=== PATIENT | male | born 1980 | race Caucasian/White ===

== ENCOUNTER → 2017-11-11 07:57 | Outpatient (CLI) | payer OTHER, SELFPAY | PROVIDERS: Family Provider Family Medicine; PCP Family Medicine; Visit Provider Preventive Medicine Occupational Medicine | DX: R10.13 Epigastric pain (principal) | CPT/HCPCS: 76705 ==

== ENCOUNTER 2019-10-04 13:11 | Emergency (ER) | payer OTHER, SELFPAY ==
[2019-10-04 13:13] VITALS: BP 150/83; PULSE 98; RESP 14; TEMP 36.7; O2SAT 99; BMI 27.1
--- NOTE | 2019-10-04 13:36 | RAD_ITS ---
STUDY: X-RAY - RIGHT FOOT CLINICAL: Male, 39 years old. PAIN S/P INJURY LAS NIGHT -- PAIN AND SWELLING TOP OF FOOT TECHNIQUE: 3 view(s) of the foot. COMPARISON: None. FINDINGS: Normal talus, calcaneus, and tarsal bones. Normal visualized subtalar, talonavicular, calcaneocuboid, tarsal and tarsometatarsal articulations. Nondisplaced fractures at the base of the second third and fourth metatarsals. Normal metatarsophalangeal joint of the great toe. Normal tibial and fibular sesamoid bones. Normal interphalangeal joint of the great toe. Normal phalanges of the great toe. Normal second through fifth metatarsophalangeal joints. Normal interphalangeal joints and phalanges of the lesser toes. The soft tissue structures are unremarkable. RAD/Foot min 3 Views IMPRESSION: Multiple metatarsal fractures and possible unstable Lisfranc injury Electronically Signed: Jorden Arguelles MD at 14:14 EDT , Service support ,
--- NOTE | 2019-10-04 13:38 | ED.VISSUMM ---
- ER Visit Summary Date of Service: 10/04/19 Chief Complaint: Right foot pain and swelling after injury History of Present Illness: The patient is a 39 M has medical history of reflux. Yesterday was swimming in a friend's pool. He jumped out of a pool was running along the pool deck and accidentally kicked the base of a pool basketball hoop. Since then has had pain and swelling to the right foot. No prior history of surgery or fracture. Said it caused him a lot of pain with weightbearing. Denies any ankle or other injuries. Physical Examination: No acute distress vital signs stable afebrile. HEENT exam unremarkable. Lungs clear to auscultation. Heart regular rhythm no murmur. Chest wall nontender. Abdomen soft nontender. Pelvic girdle intact. Extremities moves all 4. Neurovascular intact. Specifically right hip, right knee and right ankle nontender nonswollen normal range of motion. Right foot pain on palpation swelling to the anterior lateral right foot. No bony deformity. DP pulse intact. Able to wiggle his toes. Normal cap refill touch sensation. Skin is intact. Neurologically is awake and alert with no focal motor deficits. Back nontender. Test Results: Right foot x-ray 3 views read by myself just is concerning for fractures of the base of the second, third and fourth metatarsals with a rule out Lisfranc injury. I went over the films with the patient. Emergency Department Course and Treatment: Patient has pain and swelling to his right foot after trauma yesterday. He does not want anything for pain. X-ray being obtained. Treatment Plan: Ice and elevate. Limited [place] for pain otherwise Motrin. Weightbearing. Keep posterior splint dry and clean. Follow-up with Dr. Peguero of podiatry Disposition: Discharge Impression: Acute right foot fractures of the second, third and fourth metatarsals Rule out Lisfranc injury Short leg posterior splint by ER (Ortho-Glass fabricated by the ER physician) This note was generated with [employer] dictation software. It may contain incorrect words, spelling, and punctuation that were not noted in review of the chart prior to signing ED Disposition - Plan for ED Patient: Disposition: Home or Assisted Living Instructions: ED FOOT FRACTURE Prescriptions: Hydrocodone Bitart/Apap 5-325 [[place] 5MG-325MG] 1 - 2 tab PO Q4H PRN PRN 5 Days #14 tab PRN Reason: Pain Prescription Printed Referrals: Latosha Peguero DPM [STAFF PHYSICIAN] - Additional Instructions: Ice and elevate to decrease pain and swelling. Motrin for pain and swelling and/or Tylenol. Suspected fractures of your second third and fourth metatarsals. Will need further evaluation and possible additional imaging when you follow-up with the wood veneer taper Dr. Peguero. No weightbearing on your foot. Posterior splint dry and clean. Do not try to walk on it.
--- NOTE | 2019-10-04 13:53 | DCINST.ED_ITS ---
ED Disposition - Plan for ED Patient: Disposition: Home or Assisted Living Instructions: ED FOOT FRACTURE Prescriptions: Hydrocodone Bitart/Apap 5-325 [[place] 5MG-325MG] 1 - 2 tab PO Q4H PRN PRN 5 Days #14 tab PRN Reason: Pain Prescription Printed Referrals: Latosha Peguero DPM [STAFF PHYSICIAN] - As soon as possible Additional Instructions: Ice and elevate to decrease pain and swelling. Motrin for pain and swelling and/or Tylenol. Suspected fractures of your second third and fourth metatarsals. Will need further evaluation and possible additional imaging when you follow-up with the corn lab technician Dr. Peguero. No weightbearing on your foot. Posterior splint dry and clean. Do not try to walk on it.
[2019-10-04 14:07] VITALS: RESP 17
== END 2019-10-04 14:07 | disposition home or self-care (01) ==
LOC: ED 14:00
PROVIDERS: Emergency Provider Emergency Medicine; PCP Preventive Medicine Occupational Medicine
DX: S92.321A Displaced fracture of second metatarsal bone, right foot, initial encounter for closed fracture (principal); S92.331A Displaced fracture of third metatarsal bone, right foot, initial encounter for closed fracture; S92.341A Displaced fracture of fourth metatarsal bone, right foot, initial encounter for closed fracture; W21.89XA Striking against or struck by other sports equipment, initial encounter; Y93.02 Activity, running; Y92.89 Other specified places as the place of occurrence of the external cause; Y99.9 Unspecified external cause status; K21.9 Gastro-esophageal reflux disease without esophagitis
CPT/HCPCS: 29515; 73630; 99283

== ENCOUNTER → 2020-03-10 10:56 | Outpatient (CLI) | payer OTHER, SELFPAY ==
--- NOTE | 2020-03-10 11:30 | MRI_ITS ---
STUDY: MRI RIGHT ANKLE WITHOUT CONTRAST REASON FOR EXAM: Male, 39 years old. RIGHT ankle pain RADIATES ACROSS TARSALS, H/O PRIOR 3,4,5 MT FX TECHNIQUE: Standardized fat and water weighted pulse sequences were obtained in all 3 orthogonal planes. COMPARISON: None. FINDINGS: Normal subcutis adipose space. Normal posterior tibialis tendon. Normal flexor digitorum longus tendon. Normal flexor hallucis longus tendon. Normal peroneus longus and brevis tendons. Normal tibialis anterior tendon. Normal extensor hallucis longus tendon. Normal extensor digitorum longus tendons. Normal Achilles tendon and teno-osseous insertion. Normal plantar fascia. Normal plantar calcaneal tubercles. Normal intrinsic muscles of the rearfoot. Normal distal tibiofibular syndesmotic ligamentous complex. Normal lateral ligamentous complex. Normal subtalar ligaments and sinus tarsi. Normal deltoid ligamentous complexes. Normal plantar calcaneonavicular (spring) ligament. Normal tibiotalar articulation. Normal talar dome. Normal subtalar articulations. Normal talonavicular articulation. Normal calcaneocuboid articulation. Normal navicular-cuneiform articulations. Incidentally noted is patchy marrow edema within the anterior portion of the talus as well as the majority of the midtarsal bones and base of the metatarsals. No discrete fracture line is noted. Findings are likely related to complex regional pain syndrome MRI/Lower Ext Joint Only (Routine) IMPRESSION: Abnormal patchy marrow edema within the osseous structures as detailed above. Findings are likely related to CRPS. Recommend clinical correlation. No intrinsic abnormality Electronically Signed: Masood Barajas DO at 9:00 EST Tel , Service support ,
== END ==
PROVIDERS: PCP Preventive Medicine Occupational Medicine; Referring Provider Podiatrist; Visit Provider Podiatrist
DX: M25.571 Pain in right ankle and joints of right foot (principal); M93.871 Other specified osteochondropathies, right ankle and foot; M79.671 Pain in right foot
CPT/HCPCS: 73721

== ENCOUNTER 2020-03-31 07:30 | Outpatient (RCR) | payer BC, OTHER, SELFPAY ==
--- NOTE | 2020-02-01 08:40 | HP.PTEVAL ---
Patient's Visit Information MARCO BEY is a 39 year old M referred to Physical Therapy by Dr. Latosha Peguero DPM with a diagnosis of Healted 3,4,5 Metatarsal base fracture. Date of Evaluation: 02/01/20 Physical Therapist: Yulissa Daily DPT - Visit Plan Frequency: 2-3x /Week Duration: 4 Weeks Plan: Focus on proprioception, ankle ROM, gait and functional mobility. - Subjective 17 weeks ago broke his 2nd, 3rd, 4th and 5th metatarsals on the right side. Kicked the larges base of the basketball hoop. All the breaks were at the top near the joint- 8 weeks non weight bearing in boot- 4 weeks transition to WB in boot- 5 weeks has been full weight bearing in a shoe. Still has a lot of pain under 5th met and runs along the lateral aspect of the foot and behind the toes to make an L shape. His lateral malleolus is also painful. Pain is only when he is weight bearing. Worst: 06/25 agg: weight bearing. Eases: non weightbearing. A couple of minute and he reuturns to painfee. When he was in the boot he was painfree. Describes the pain as dull and achy. The ankle feels like its going to roll and he can't SLS on it. Fully I prior to this. 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 Has tennis shoes and wears Power Steps in them. Wears shoes at all times. No radiating pain- No N/T at this time. Feels that he is 50% back to normal prior to break. Has had x-rays and then fractures look great. Sleep: not disturbed PMHx: none Meds: pantroprozol, usperin. - Objective Posture: FH, RS- can correct with verbal cues but does not maintain. Gait: antalgic- decrease stance on the right LE with poor heel/toe pattern. HR/TR: able but reports discomfort and requires UE A. SLS: weight shift only due to instability and discomfort. Palpation: tender along 5th met. ROM: DF: 5 degrees, PF: 60 degrees, Inver: 40 degrees, Ever: 20 degrees. Stairs: non recip with 1 HR- can do recip but significant discomfort. Strength: ankle: 4+/5. Observation: atrophy of the right calf. Sensation:WNL - Goals Goal 1:: Patient will be I with HEP and progression Goal Time Frame: 4-6 Weeks Goal 2:: Patient will asc/desc 8 recip with 1 HR and a normal pattern Goal Time Frame: 4-6 Weeks Goal 3:: Patient will ambulate >300 feet with a normalized gait pattern Goal Time Frame: 4-6 Weeks Goal 4:: Patient will demo full ROM in the ankle to ease ADL's Goal Time Frame: 4-6 Weeks - Rehabilitation Potential Physical Therapy Diagnosis: Patient presents with hypmobility- he has decreased ROM, flexibility, strength and muscular endurance leading to abnormal gait and decreased ability to perform ADL's. Rehabilitation Potential: Good - Anticipated Interventions Patient/Client Instruction: Educate patient on: Benefits of Fitness Program Therapeutic Exercise to Include: Strength training, Endurance training, Balance training, Agility training, Body mechanics, Postural training, Flexibilty training, Gait and locomotor training, Neuromotor development, Passive ROM, Active ROM, Dynamic Lumbar Stabilization, Scapular Strength/Stabilization For the Purpose of:: To improve muscle performance and motor function TENS: Yes Cryotherapy (ice pack, ice massage): Yes Thermo therapy (hot pack): Yes Thank you for the opportunity to evaluate your patient. For Medicare and Medicare HMO plans, please review the plan of care and approve it. It will need to be FAXED BACK to us at [phone] for Medicare purposes. For Medicare only, by signing this I certify the plan of care. Please let me know if there are questions or concerns regarding this plan of care. Physician Signature: Date:
--- NOTE | 2020-02-22 08:48 | HP.PTREVAL ---
Dr. Latosha Peguero, DPM, It has been my pleasure to treat MARCO BEY over the last 10 visits for Right Healted 3,4,5 Metatarsal base fracture. Please see the progress note below for an update on the physical therapy plan of care! Subjective: After Saturday PT session it started hurting and it really didn't stop. It has gotten better and better- but its just stiff and achy. The pain behind the toes and his ankle is restricting him from pushing forwards with anything. He feels there is little to no strength in the foot. Has not had an MRI of the foot- just x-rays. The severe pain has gone away but its more lack of function and discomfort. Objective/Function: Posture: FH, RS- can correct with verbal cues but does not maintain. Gait: less antalgic than IE however still noticeable- decrease stance on the right LE with poor heel/toe pattern- poor push off on the right LE- flat foot progression. HR/TR: able bilateral with weight shift to the left LE Placed on the shuttle for decreased weight bearing on the right- able to perform with 50# through full ROM with single limb but unable to obtain full ROM with 67.5#. SLS: 15 sec with increased muscle activation and sway. Palpation: tender along 5th met. ROM: DF: 15 degrees, PF: 60 degrees, Inver: 40 degrees, Ever: 20 degrees. Stairs: reciprocal with increased challenge with descent due to stiffness with DF Strength: ankle: 4+/5. Observation: atrophy of the right calf. Sensation:WNL Plan Plan: 02/21: follow up with referring MD for further evaluation tomorrow. Goals Goal 1:: Patient will be I with HEP and progression Goal Time Frame: 4-6 Weeks Goal Progress: Progressing Goal 2:: Patient will asc/desc 8 recip with 1 HR and a normal pattern Goal Time Frame: 4-6 Weeks Goal Progress: Progressing Goal 3:: Patient will ambulate >300 feet with a normalized gait pattern Goal Time Frame: 4-6 Weeks Goal Progress: Progressing Goal 4:: Patient will demo full ROM in the ankle to ease ADL's Goal Time Frame: 4-6 Weeks Goal Progress: Progressing Anticipated Interventions Patient/Client Instruction: Educate patient on: Benefits of Fitness Program Therapeutic Exercise to Include: Strength training, Endurance training, Balance training, Agility training, Body mechanics, Postural training, Flexibilty training, Gait and locomotor training, Neuromotor development, Passive ROM, Active ROM, Dynamic Lumbar Stabilization, Scapular Strength/Stabilization For the Purpose of:: To improve muscle performance and motor function TENS: Yes Cryotherapy (ice pack, ice massage): Yes Thermo therapy (hot pack): Yes Please do not hesitate to contact me at [phone] by phone or if you have questions or concerns regarding this new plan of care! Sincerely, KARI ObrienT
--- NOTE | 2020-03-31 08:00 | HP.PTDCSUM_ITS ---
It has been my pleasure to treat MARCO BEY referred by KARI Burnett, with the diagnosis of Right Healted 3,4,5 Metatarsal base fracture for a total of 19 visit(s). Discharge Date: Please see the following information for a summary of their discharge status. Subjective: Patient reports that his foot his better. He still has a little bit of pain in the anterior ankle (2-3/10). The foot is decent moderate pain (1- 2/10). He has been working it pretty hard at home-stairs is something he has been working at a lot. He is able to desc without a rail. Happy with progress and feels that he can continue to do it at home. HEP: stairs, ton of balance stuff, heel raise on edge of stairs, Therband (purple). R foot pain Pain Intensity (Out of 10): 2 % Improvement: 50 Objective/Function: Posture: FH, RS- can correct with verbal cues but does not maintain. Gait: less antalgic than IE however still noticeable- decrease stance on the right LE with fair heel/toe pattern- fair push off on the right LE. HR/TR: able bilateral with weight shift to the left LE. single HR: able with decreased ROM. SLS: 30 sec with dynamic movement with mild increase in muscle activation. Palpation: not tender to touch ROM: DF: 12 degrees, PF: 60 degrees, Inver: 40 degrees, Ever: 40 degrees. Stairs: reciprocal without handrail, ascending slight decreased stance on R LE, descending moderate valgus of knee with decreased controlled descent. Strength: ankle: 5/5. Observation: atrophy of the right calf. Sensation:WNL Goal 1:: Patient will be I with HEP and progression Goal Progress: Goal Met Goal 2:: Patient will asc/desc 8 recip with 1 HR and a normal pattern Goal Progress: Progressing Goal 3:: Patient will ambulate >300 feet with a normalized gait pattern Goal Progress: Progressing Goal 4:: Patient will demo full ROM in the ankle to ease ADL's Goal Progress: Goal Met Plan: Discharge to I HEP as listed above, encouraged balance and LE strengthening. If there are questions or concerns regarding this patient's physical therapy, stacia chatterjee feel free to call me at [phone]. Thank you for the referral of this patient. Sincerely, KARI ObrienT
== END 2020-03-31 19:00 | disposition home or self-care (01) ==
LOC: PT 07:30
PROVIDERS: PCP Preventive Medicine Occupational Medicine; Referring Provider Podiatrist; Visit Provider Podiatrist
DX: S92.331D Displaced fracture of third metatarsal bone, right foot, subsequent encounter for fracture with routine healing (principal); S92.341D Displaced fracture of fourth metatarsal bone, right foot, subsequent encounter for fracture with routine healing; S92.351D Displaced fracture of fifth metatarsal bone, right foot, subsequent encounter for fracture with routine healing; R26.9 Unspecified abnormalities of gait and mobility
CPT/HCPCS: 97014; 97035; 97110; 97140; 97161; 97164; 97530; G0283

== ENCOUNTER → 2020-12-07 | Outpatient (CLI) | payer BC, SELFPAY | END | disposition home or self-care (01) | LOC: LABSPEC 15:12 | PROVIDERS: PCP Preventive Medicine Occupational Medicine; Referring Provider Physician Assistant; Visit Provider Physician Assistant | DX: Z20.822 Contact with and (suspected) exposure to COVID-19 (principal) | CPT/HCPCS: 87635; U0005; U0003 ==

== ENCOUNTER → 2022-01-30 | Outpatient (CLI) | payer BC, SELFPAY ==
[2022-01-30 11:59] LABS: Erythrocyte Sedimentation Rate 6 mm/hr (0-20)
[2022-01-30 12:02] LABS: Absolute Lymphocyte Count 2.71 X10^3/uL (0.83-4.51); Absolute Neutrophil Count 4.6 X10^3/uL (2.0-7.7); Basophil# 0.05 X10^3/uL; Basophil% 0.6 % (0-1); Eosinophil# 0.27 X10^3/uL; Eosinophils% 3.2 % (0-5); Hematocrit 47.7 % (40-54); Hemoglobin 15.5 g/dL (13.0-16.5); Lymphocyte # 2.71 X10^3/ul (0.83-4.51); Lymphocyte % 32.3 % (19-41); Mean Corp Hgb Conc 32.5 g/dL (32-36); Mean Corpuscular Hgb 29.3 pg (27.0-32.0); Mean Corpuscular Volume 90.2 fL (80-94); Mean Platelet Vol. 9.6 fl (6.2-12.0); Monocyte# 0.71 X10^3/uL; Monocyte% 8.5 % (0-10); NRBC Flagged by Analyzer 0 % (0-5); Neutrophil # 4.56 X10^3/uL (2.7-7.7); Neutrophil % 54.4 % (47-70); Platelet Count 332 K/mm3 (150-450); RBC Distribution Width CV 11.8 % (11.6-14.6); RBC Distribution Width SD 39.2 fl (35.1-43.9); Red Blood Count 5.29 M/mm3 (4.6-6.2); White Blood Count 8.4 K/mm3 (4.4-11.0)
[2022-01-30 12:20] LABS: AST(SGOT) 16 U/L (15-37); Alanine Aminotransfer ALT/SGPT 48 U/L (16-61); Albumin, Serum 3.9 g/dL (3.2-5.0); Alkaline Phosphatase 73 U/L (45-117); Anion Gap 4 (5-15); BUN 14 mg/dL (7-18); BUN/Creat Ratio 12.7 RATIO (10-20); Calcium,Total 8.9 mg/dL (8.5-10.1); Chloride 105 mmol/L (98-107); Cholesterol 221 mg/dL (200); EST Glomerular Filtration Rate 78 mL/min (>60); Est Glom Filt Rate - Afr Amer 94 mL/min (>60); Globulin 3.9 g/dL (2.2-4.2); Glucose 91 mg/dL (74-106); High Density Lipoprotein 48 mg/dL; Potassium 4.2 mmol/L (3.5-5.1); Protein, Total 7.8 g/dL (6.4-8.2); Sodium Level 140 mmol/L (136-145); Thyroid Stim Hormone (TSH) 1.92 uIU/mL (0.358-3.74); Triglycerides 188 mg/dL; Very Low Density Lipoprotein 38 mg/dL (5-40)
== END | disposition home or self-care (01) ==
LOC: BIMLAB 08:16
PROVIDERS: PCP Internal Medicine; Referring Provider Internal Medicine; Visit Provider Internal Medicine
DX: G44.52 New daily persistent headache (NDPH) (principal); Z13.6 Encounter for screening for cardiovascular disorders
CPT/HCPCS: 36415; 80053; 80061; 84443; 85025; 85652

== ENCOUNTER → 2022-02-23 | Outpatient (CLI) | payer BC, SELFPAY ==
--- NOTE | 2022-02-23 10:17 | MRI_ITS ---
HISTORY: new daily persistent headache, pulsing sensation. TECHNIQUE: Multiplanar and multisequence MR images of the brain were obtained before and after the intravenous administration of 20 cc Clariscan. 338 images. COMPARISON: None. FINDINGS: BRAIN PARENCHYMA: No significant signal abnormality or enhancing lesion in the brain parenchyma. No abnormal focus of restricted diffusion. No acute intracranial hemorrhage identified. CSF SPACES: Cerebral ventricles, cortical sulci, and other extra-axial CSF spaces within normal limits in size. No significant midline shift or other mass effect.No extra-axial fluid collection. VASCULAR SYSTEM: Major intracranial flow voids are maintained. PARANASAL SINUSES AND MASTOID AIR CELLS: No significant air fluid levels in the paranasal sinuses. Trace fluid in the left mastoid air cells. ORBITS: Symmetric contents. MRI/Brain W/WO Contrast IMPRESSION: Unremarkable examination. No evidence for significant signal abnormality in the brain or enhancing intracranial mass. Electronically Signed: Velia Clark MD at 12:39 EST ,
== END | disposition home or self-care (01) ==
LOC: MRI 10:17
PROVIDERS: PCP Internal Medicine; Referring Provider Internal Medicine; Visit Provider Internal Medicine
DX: G44.52 New daily persistent headache (NDPH) (principal)
CPT/HCPCS: 70553; A9575

== ENCOUNTER → 2023-07-10 | Outpatient (CLI) | payer BC, SELFPAY ==
[2023-07-10 12:49] LABS: Absolute Lymphocyte Count 2.25 X10^3/uL (0.83-4.51); Absolute Neutrophil Count 3.9 X10^3/uL (2.0-7.7); Basophil# 0.04 X10^3/uL; Basophil% 0.6 % (0-1); Eosinophil# 0.32 X10^3/uL; Eosinophils% 4.4 % (0-5); Hematocrit 46.2 % (40-54); Lymphocyte # 2.25 X10^3/ul (0.83-4.51); Lymphocyte % 31.1 % (19-41); Mean Corp Hgb Conc 32.5 g/dL (32-36); Mean Corpuscular Hgb 29.1 pg (27.0-32.0); Mean Corpuscular Volume 89.7 fL (80-94); Mean Platelet Vol. 9.5 fl (6.2-12.0); Monocyte# 0.69 X10^3/uL; Monocyte% 9.5 % (0-10); NRBC Flagged by Analyzer 0 % (0-5); Neutrophil % 53.8 % (47-70); Platelet Count 306 K/mm3 (150-450); RBC Distribution Width CV 11.9 % (11.6-14.6); RBC Distribution Width SD 39.2 fl (35.1-43.9); Red Blood Count 5.15 M/mm3 (4.6-6.2); White Blood Count 7.2 K/mm3 (4.4-11.0)
[2023-07-10 13:06] LABS: ALB/GLOB Ratio 1.1 RATIO (0.9-2.4); AST(SGOT) 17 U/L (15-37); Alanine Aminotransfer ALT/SGPT 38 U/L (16-61); Albumin, Serum 3.9 g/dL (3.2-5.0); Alkaline Phosphatase 64 U/L (45-117); Anion Gap 3 (5-15); BUN 16 mg/dL (7-18); BUN/Creat Ratio 14.8 RATIO (10-20); Chloride 107 mmol/L (98-107); Cholesterol 209 mg/dL (200); Creatinine, Serum 1.08 mg/dL (0.70-1.30); EST Glomerular Filtration Rate 79 mL/min (>60); Est Glom Filt Rate - Afr Amer 96 mL/min (>60); Globulin 3.7 g/dL (2.2-4.2); Glucose 93 mg/dL (74-106); High Density Lipoprotein 50 mg/dL; Protein, Total 7.6 g/dL (6.4-8.2); Sodium Level 139 mmol/L (136-145); Triglycerides 218 mg/dL; Very Low Density Lipoprotein 44 mg/dL (5-40)
== END | disposition home or self-care (01) ==
LOC: BIMLAB 07:56
PROVIDERS: PCP Internal Medicine; Visit Provider Internal Medicine
DX: R03.0 Elevated blood-pressure reading, without diagnosis of hypertension (principal); K21.9 Gastro-esophageal reflux disease without esophagitis; E78.2 Mixed hyperlipidemia
CPT/HCPCS: 36415; 80053; 80061; 85025

== ENCOUNTER → 2023-12-19 | Outpatient (CLI) | payer BC, SELFPAY | END | disposition home or self-care (01) | LOC: SL 08:15 | PROVIDERS: PCP Internal Medicine; Referring Provider Nurse Practitioner; Visit Provider Nurse Practitioner | DX: G47.10 Hypersomnia, unspecified (principal) | CPT/HCPCS: 95806 ==